=== PATIENT | male | born 1955 | race Caucasian/White ===

== ENCOUNTER → 2017-04-05 10:39 | Outpatient (CLI) | payer MEDICARE, MEDICAID, SELFPAY ==
[2017-04-05 13:21] LABS: Basophils % 0.6 % (0.1-2.0); Eosinophils # 0.3 K/mm3 (0.0-0.4); Eosinophils % 3.9 % (0.1-12.0); Hematocrit 49.8 % (42.0-52.0); Hemoglobin 15.8 g/dL (14.1-18.0); Lymphocytes % 26.6 K/mm3 (10-50); Mean Corpuscular HGB Conc 31.7 g/dL (31.8-35.4); Mean Corpuscular Hemoglobin 28.6 pg (27.0-31.2); Mean Corpuscular Volume 90.4 fl (80-94); Mean Platelet Volume 7.4 fl (7.4-10.4); Monocytes # 0.5 K/mm3 (0.1-1.0); Monocytes % 6.3 % (1.7-9.3); Neutrophils # 4.7 K/mm3 (1.8-7.8); Neutrophils % 62.7 % (37.0-80.0); Platelet Count 423 K/mm3 (142-424); Red Blood Count 5.51 M/mm3 (4.60-6.20); White Blood Count 7.5 K/mm3 (4.8-10.8)
[2017-04-05 13:25] LABS: Alanine Aminotransferase 25 U/L (12-78); Albumin Level 3.9 gm/dL (3.4-5.0); Albumin/Globulin Ratio 1.3 (1.1-1.8); Alkaline Phosphatase 101 U/L (46-116); Anion Gap 11.8 mEq/L (5-15); Bilirubin,Total 0.4 mg/dL (0.2-1.0); Blood Urea Nitrogen 17 mg/dL (7-18); Calcium 9.1 mg/dL (8.5-10.1); Carbon Dioxide 27 mmol/L (21.0-32.0); Chloride 107 mmol/L (98-107); Chol/HDL Ratio 2.8 (1-3.5); Cholesterol 110 mg/dL (140-200); Creatinine,Serum 0.71 mg/dL (0.70-1.30); Estimated Glomerular Filt Rate 112 ml/min (>60); GFR (African American) 136 ML/MIN (>60); Globulin 2.9 gm/dl (1.3-3.2); Glucose 154 mg/dL (74-106); HDL Cholesterol 39 mg/dL (27-67); LDL Cholesterol 52 mg/dL (0-130); Sodium 141 mmol/L (136-145); Thyroid Stimulating Hormone 2.56 uIU/ml (0.358-3.740); Total Protein,Serum 6.8 gm/dL (6.4-8.2); Triglycerides 94 mg/dL (30-200); VLDL Cholesterol 19 mg/dL (0-40)
[2017-04-05 13:38] LABS: Aspartate Amino Transferase 16 U/L (15-37); Potassium 4.8 mmoL/L (3.5-5.1)
[2017-04-05 13:53] LABS: Hemoglobin A1C 7.7 % (0.0-7.0)
== END ==
PROVIDERS: PCP Internal Medicine Adolescent Medicine; Visit Provider Internal Medicine Adolescent Medicine
DX: E11.69 Type 2 diabetes mellitus with other specified complication (principal); I25.10 Atherosclerotic heart disease of native coronary artery without angina pectoris; E03.9 Hypothyroidism, unspecified
CPT/HCPCS: 36415; 80053; 80061; 83036; 84443; 85025

== ENCOUNTER → 2017-07-05 10:23 | Outpatient (CLI) | payer MEDICARE, MEDICAID, SELFPAY ==
[2017-07-05 14:15] LABS: Alanine Aminotransferase 22 U/L (12-78); Albumin Level 3.8 gm/dL (3.4-5.0); Albumin/Globulin Ratio 1.2 (1.1-1.8); Alkaline Phosphatase 84 U/L (46-116); Anion Gap 14.1 mEq/L (5-15); Aspartate Amino Transferase 13 U/L (15-37); Bilirubin,Total 0.4 mg/dL (0.2-1.0); Blood Urea Nitrogen 19 mg/dL (7-18); Calcium 8.9 mg/dL (8.5-10.1); Carbon Dioxide 27 mmol/L (21.0-32.0); Chloride 106 mmol/L (98-107); Chol/HDL Ratio 2.7 (1-3.5); Cholesterol 109 mg/dL (140-200); Creatinine,Serum 0.76 mg/dL (0.70-1.30); Estimated Glomerular Filt Rate 104 ml/min (>60); GFR (African American) 125 ML/MIN (>60); Globulin 3.1 gm/dl (1.3-3.2); Glucose 108 mg/dL (74-106); HDL Cholesterol 41 mg/dL (27-67); LDL Cholesterol 54 mg/dL (0-130); Potassium 4.1 mmoL/L (3.5-5.1); Sodium 143 mmol/L (136-145); Thyroid Stimulating Hormone 2.17 uIU/ml (0.358-3.740); Total Protein,Serum 6.9 gm/dL (6.4-8.2); Triglycerides 70 mg/dL (30-200); VLDL Cholesterol 14 mg/dL (0-40)
[2017-07-05 14:38] LABS: Basophils # 0.1 K/mm3 (0-0.2); Basophils % 1.1 % (0.1-2.0); Eosinophils # 0.2 K/mm3 (0.0-0.4); Eosinophils % 3.7 % (0.1-12.0); Hematocrit 49.4 % (42.0-52.0); Hemoglobin 15.3 g/dL (14.1-18.0); Lymphocytes # 1.8 K/mm3 (0.7-4.5); Lymphocytes % 32.4 K/mm3 (10-50); Mean Corpuscular HGB Conc 30.8 g/dL (31.8-35.4); Mean Corpuscular Hemoglobin 29.3 pg (27.0-31.2); Monocytes # 0.4 K/mm3 (0.1-1.0); Monocytes % 7.9 % (1.7-9.3); Neutrophils # 3.1 K/mm3 (1.8-7.8); Neutrophils % 54.9 % (37.0-80.0); Platelet Count 436 K/mm3 (142-424); Red Cell Distribution Width 13.5 % (11.5-17.5); White Blood Count 5.6 K/mm3 (4.8-10.8)
[2017-07-05 15:47] LABS: Hemoglobin A1C 6.7 % (0.0-7.0)
[2017-07-06 12:19] LABS: Creatinine, Urine 72.9 mg/dL (Not Estab.); Microalbumin, Urine <3.0 ug/mL (Not Estab.)
== END ==
PROVIDERS: PCP Internal Medicine Adolescent Medicine; Visit Provider Internal Medicine Adolescent Medicine
DX: E11.69 Type 2 diabetes mellitus with other specified complication (principal); E03.9 Hypothyroidism, unspecified; I25.10 Atherosclerotic heart disease of native coronary artery without angina pectoris
CPT/HCPCS: 36415; 80053; 80061; 82043; 82570; 83036; 84443; 85025

== ENCOUNTER 2017-08-03 14:24 | Outpatient (RCR) | payer MEDICARE, MEDICAID, SELFPAY | END 2017-08-03 17:00 | disposition home or self-care (01) | LOC: PT 14:24 | PROVIDERS: Family Provider Family Medicine; PCP Internal Medicine Adolescent Medicine; Visit Provider Orthopaedic Surgery Adult Reconstructive Orthopaedic Surgery | DX: M62.81 Muscle weakness (generalized) (principal) | CPT/HCPCS: 97163 ==

== ENCOUNTER → 2017-08-04 09:07 | Outpatient (CLI) | payer MEDICARE, MEDICAID, SELFPAY ==
--- NOTE | 2017-08-04 09:14 | XR_ITS ---
XR hip RT 2-3V w/pelvis HISTORY: ITS.REASON: SELVIN HIP PAIN ORDERING PHYSICIAN: Ney Chacon MD PATIENT AGE: 61 years COMPARISON: 04/04/2015 FINDINGS: There are severe osteoarthritic changes of the right hip with loss of joint space, osteosclerosis, and subcortical cystic changes with osteophyte formation. There is mild deformity of the right femoral head. Osteoarthritis is worse when compared to the previous exam. No fracture or dislocation. IMPRESSION: Severe osteoarthritis of the right hip which has shown mild progression
--- NOTE | 2017-08-04 09:14 | XR_ITS ---
XR hip LT 2-3V w/pelvis HISTORY: ITS.REASON: SELVIN HIP PAIN ORDERING PHYSICIAN: Ney Chacon MD PATIENT AGE: 61 years COMPARISON: 04/04/2015 FINDINGS: There are severe osteoarthritic changes of the left hip with loss of the joint space, osteosclerosis, osteophyte formation, and subarticular cystic changes. Mild deformity of the femoral head noted. The osteoarthritis has progressed since 04/04/2015. No fracture or dislocation. IMPRESSION: Severe osteoarthritis of left hip slightly progressed
== END ==
PROVIDERS: PCP Internal Medicine Adolescent Medicine; Visit Provider Internal Medicine Adolescent Medicine
DX: M25.552 Pain in left hip (principal); M25.551 Pain in right hip
CPT/HCPCS: 73502

== ENCOUNTER → 2017-10-10 10:12 | Outpatient (CLI) | payer MEDICARE, MEDICAID, SELFPAY ==
[2017-10-10 14:26] LABS: Alanine Aminotransferase 38 U/L (12-78); Albumin/Globulin Ratio 1.3 (1.1-1.8); Alkaline Phosphatase 92 U/L (46-116); Anion Gap 15.3 mEq/L (5-15); Aspartate Amino Transferase 16 U/L (15-37); Bilirubin,Total 0.6 mg/dL (0.2-1.0); Blood Urea Nitrogen 20 mg/dL (7-18); Calcium 9.3 mg/dL (8.5-10.1); Carbon Dioxide 24 mmol/L (21.0-32.0); Chloride 106 mmol/L (98-107); Estimated Glomerular Filt Rate 97 ml/min (>60); GFR (African American) 118 ML/MIN (>60); Globulin 3.2 gm/dl (1.3-3.2); Glucose 105 mg/dL (74-106); Potassium 4.3 mmoL/L (3.5-5.1); Sodium 141 mmol/L (136-145); Thyroid Stimulating Hormone 4.23 uIU/ml (0.358-3.740); Total Protein,Serum 7.2 gm/dL (6.4-8.2)
[2017-10-10 14:36] LABS: Hemoglobin A1C 6.4 % (0.0-7.0)
== END ==
PROVIDERS: Visit Provider Internal Medicine Adolescent Medicine
DX: E11.69 Type 2 diabetes mellitus with other specified complication (principal); E03.9 Hypothyroidism, unspecified
CPT/HCPCS: 36415; 80053; 83036; 84443

== ENCOUNTER → 2018-01-30 09:45 | Outpatient (CLI) | payer MEDICARE, MEDICAID, SELFPAY ==
[2018-01-30 09:49] LABS: Microscopic, Urine URINE MICROSCOPIC (MICROSCOPIC)
[2018-01-30 13:23] LABS: Appearance,Urine CLEAR (Clear); Bilirubin,Urine Negative (Negative); Blood, Urine Negative (Negative); Color,Urine YELLOW (Yellow); Glucose,Urine (UA) 3+ (Negative); Ketones,Urine Negative (Negative); Leukocyte Esterase,Urine Negative (Negative); Nitrate,Urine Negative (Negative); Protein,Urine Negative (Negative); Specific Gravity, Urine 1.025 (1.005-1.030); Urobilinogen,Urine 0.2 EU/dl (0.2)
[2018-01-30 13:40] LABS: Hemoglobin A1C 6.5 % (0.0-7.0)
[2018-01-30 14:01] LABS: Alanine Aminotransferase 24 U/L (12-78); Albumin Level 3.7 gm/dL (3.4-5.0); Albumin/Globulin Ratio 1.2 (1.1-1.8); Alkaline Phosphatase 94 U/L (46-116); Anion Gap 13.3 mEq/L (5-15); Aspartate Amino Transferase 14 U/L (15-37); Bilirubin,Total 0.6 mg/dL (0.2-1.0); Blood Urea Nitrogen 17 mg/dL (7-18); Carbon Dioxide 31 mmol/L (21.0-32.0); Chloride 103 mmol/L (98-107); Creatinine,Serum 0.62 mg/dL (0.70-1.30); Estimated Glomerular Filt Rate 131 ml/min (>60); GFR (African American) 158 ML/MIN (>60); Globulin 3.1 gm/dl (1.3-3.2); Glucose 137 mg/dL (74-106); Potassium 4.3 mmoL/L (3.5-5.1); Sodium 143 mmol/L (136-145); Thyroid Stimulating Hormone 3.73 uIU/ml (0.358-3.740); Total Protein,Serum 6.8 gm/dL (6.4-8.2)
[2018-01-30 14:15] LABS: Mucus,Urine 1+ /lpf; Squamous Epithelial Cell,Urine Occasional #/hpf (0-5)
[2018-01-30 14:16] LABS: Bacteria,Urine Trace /lpf; WBC,Urine Occasional #/hpf (0-3)
[2018-01-31 11:47] LABS: Microalbumin, Urine <3.0 ug/mL (Not Estab.)
== END ==
PROVIDERS: PCP Internal Medicine Adolescent Medicine; Visit Provider Internal Medicine Adolescent Medicine
DX: E11.69 Type 2 diabetes mellitus with other specified complication (principal); E03.9 Hypothyroidism, unspecified; I10 Essential (primary) hypertension
CPT/HCPCS: 36415; 80053; 81001; 82043; 83036; 84443

== ENCOUNTER → 2018-03-20 13:07 | Outpatient (CLI) | payer MEDICARE, MEDICAID, SELFPAY ==
--- NOTE | 2018-03-20 13:14 | XR_ITS ---
XR knee LT 3V HISTORY: Left knee pain ITS.REASON: OA ORDERING PHYSICIAN: Reymundo Sears PATIENT AGE: 62 years COMPARISON: Left knee 04/04/2015 FINDINGS: There is minor joint space narrowing medially and minor spurring of the tibial spines. There is narrowing of the patellofemoral space with minimal spurring of the superior border of the patella. There is no fracture or loose and is no definite effusion. IMPRESSION: Mild osteoarthritic changes left knee joint slight progression from the previous study.
--- NOTE | 2018-03-20 13:14 | XR_ITS ---
XR hip LT 2-3V w/pelvis HISTORY: Bilateral hip pain ITS.REASON: OA ORDERING PHYSICIAN: Reymundo Sears PATIENT AGE: 62 years COMPARISON: Left hip 08/04/2017 and pelvis right hip 08/04/2017 FINDINGS: Severe far advanced osteoarthritic changes are seen in both hips with known on bone appearance, mild sclerosis of the acetabulum and prominent subchondral cystic change in the femoral heads bilaterally. There is osteophytic spurring of the inferior aspect of the right femoral head. There is mild osteophytic spurring of the roof of the left acetabulum. There has been no significant interval progression of the changes from previous study in July of this year. The SI joints and symphysis pubis appear normal. IMPRESSION: Far advanced severe bilateral osteoarthritic change of both hips
== END ==
PROVIDERS: PCP Internal Medicine Adolescent Medicine; Visit Provider Orthopaedic Surgery Adult Reconstructive Orthopaedic Surgery
DX: M16.12 Unilateral primary osteoarthritis, left hip (principal); M17.12 Unilateral primary osteoarthritis, left knee
CPT/HCPCS: 73502; 73562

== ENCOUNTER → 2018-10-16 09:59 | Outpatient (CLI) | payer MEDICARE, MEDICAID, SELFPAY ==
[2018-10-16 14:05] LABS: Basophils # 0.1 K/mm3 (0-0.2); Basophils % 1.2 % (0.1-2.0); Eosinophils # 0.2 K/mm3 (0.0-0.4); Eosinophils % 3.8 % (0.1-12.0); Hematocrit 44.2 % (42.0-52.0); Hemoglobin 13.3 g/dL (14.1-18.0); Lymphocytes # 1.2 K/mm3 (0.7-4.5); Lymphocytes % 23.8 % (10-50); Mean Corpuscular HGB Conc 30.1 g/dL (31.8-35.4); Mean Corpuscular Hemoglobin 28.2 pg (27.0-31.2); Mean Corpuscular Volume 93.6 fl (80-94); Mean Platelet Volume 7.4 fl (7.4-10.4); Monocytes # 0.3 K/mm3 (0.1-1.0); Monocytes % 6.5 % (1.7-9.3); Neutrophils # 3.3 K/mm3 (1.8-7.8); Neutrophils % 64.6 % (37.0-80.0); Platelet Count 421 K/mm3 (142-424); Red Blood Count 4.73 M/mm3 (4.60-6.20); Red Cell Distribution Width 14.7 % (11.5-17.5); White Blood Count 5.1 K/mm3 (4.8-10.8)
[2018-10-16 14:40] LABS: Hemoglobin A1C 6.7 % (0.0-7.0)
[2018-10-16 15:22] LABS: Alanine Aminotransferase 20 U/L (12-78); Albumin Level 3.5 gm/dL (3.4-5.0); Albumin/Globulin Ratio 1.3 (1.1-1.8); Alkaline Phosphatase 98 U/L (46-116); Anion Gap 13.4 mEq/L (5-15); Aspartate Amino Transferase 10 U/L (15-37); Bilirubin,Total 0.3 mg/dL (0.2-1.0); Blood Urea Nitrogen 13 mg/dL (7-18); Calcium 9.3 mg/dL (8.5-10.1); Carbon Dioxide 28 mmol/L (21.0-32.0); Chloride 106 mmol/L (98-107); Creatinine,Serum 0.87 mg/dL (0.70-1.30); Estimated Glomerular Filt Rate 88 ml/min (>60); GFR (African American) 107 ML/MIN (>60); Globulin 2.8 gm/dl (1.3-3.2); Glucose 231 mg/dL (74-106); Potassium 4.4 mmoL/L (3.5-5.1); Sodium 143 mmol/L (136-145); Thyroid Stimulating Hormone 2.16 uIU/ml (0.358-3.740); Total Protein,Serum 6.3 gm/dL (6.4-8.2)
== END ==
PROVIDERS: PCP Internal Medicine Adolescent Medicine; Visit Provider Internal Medicine Adolescent Medicine
DX: E03.9 Hypothyroidism, unspecified (principal); E11.69 Type 2 diabetes mellitus with other specified complication
CPT/HCPCS: 36415; 80053; 83036; 84443; 85025

== ENCOUNTER → 2019-01-16 09:46 | Outpatient (CLI) | payer MEDICARE, MEDICAID, SELFPAY ==
[2019-01-16 15:43] LABS: Anion Gap 13.5 mEq/L (5-15); Blood Urea Nitrogen 12 mg/dL (7-18); Calcium 9.2 mg/dL (8.5-10.1); Carbon Dioxide 28 mmol/L (21.0-32.0); Chloride 106 mmol/L (98-107); Creatinine,Serum 0.75 mg/dL (0.70-1.30); Estimated Glomerular Filt Rate 105 ml/min (>60); GFR (African American) 126 ML/MIN (>60); Glucose 136 mg/dL (74-106); Potassium 4.5 mmoL/L (3.5-5.1); Sodium 143 mmol/L (136-145); Thyroid Stimulating Hormone 2.83 uIU/ml (0.358-3.740)
[2019-01-16 16:50] LABS: Hemoglobin A1C 7.7 % (0.0-7.0)
== END ==
PROVIDERS: PCP Internal Medicine Adolescent Medicine; Visit Provider Internal Medicine Adolescent Medicine
DX: E11.69 Type 2 diabetes mellitus with other specified complication (principal); E03.9 Hypothyroidism, unspecified
CPT/HCPCS: 36415; 80048; 83036; 84443

== ENCOUNTER → 2019-04-10 09:10 | Outpatient (CLI) | payer MEDICARE, MEDICAID, SELFPAY ==
[2019-04-10 15:13] LABS: Alanine Aminotransferase 24 U/L (12-78); Albumin/Globulin Ratio 1.3 (1.1-1.8); Anion Gap 15.8 mEq/L (5-15); Aspartate Amino Transferase 16 U/L (15-37); Bilirubin,Total 0.6 mg/dL (0.2-1.0); Blood Urea Nitrogen 20 mg/dL (7-18); Calcium 9.2 mg/dL (8.5-10.1); Carbon Dioxide 28 mmol/L (21.0-32.0); Chloride 104 mmol/L (98-107); Creatinine,Serum 1.01 mg/dL (0.70-1.30); Estimated Glomerular Filt Rate 74 ml/min (>60); GFR (African American) 90 ML/MIN (>60); Globulin 3.1 gm/dl (1.3-3.2); Glucose 173 mg/dL (74-106); Potassium 4.8 mmoL/L (3.5-5.1); Sodium 143 mmol/L (136-145); Thyroid Stimulating Hormone 4.56 uIU/ml (0.358-3.740); Total Protein,Serum 7.1 gm/dL (6.4-8.2)
[2019-04-10 15:19] LABS: Alkaline Phosphatase < 10 U/L (46-116)
[2019-04-10 15:22] LABS: Hemoglobin A1C 7.7 % (0.0-7.0)
== END ==
PROVIDERS: Visit Provider Internal Medicine Adolescent Medicine
DX: E11.69 Type 2 diabetes mellitus with other specified complication (principal); E03.9 Hypothyroidism, unspecified
CPT/HCPCS: 36415; 80053; 83036; 84443

== ENCOUNTER → 2020-09-04 17:29 | Outpatient (CLI) | payer MEDICARE, MEDICAID, SELFPAY ==
[2020-09-04 18:12] LABS: Chloride 104 mmol/L (98-107); Sodium 142 mmol/L (136-145)
[2020-09-04 18:15] LABS: Alanine Aminotransferase 12 U/L (12-78); Albumin Level 4.2 g/dl (3.5-5.0); Albumin/Globulin Ratio 1.7 (1.1-1.8); Alkaline Phosphatase 94 U/L (38-126); Aspartate Amino Transferase 20 U/L (17-59); Bilirubin,Total 0.7 mg/dl (0.2-1.3); Blood Urea Nitrogen 15 mg/dl (9-20); Calcium 8.8 mg/dl (8.4-10.2); Carbon Dioxide 26 mmol/L (22.0-30.0); Estimated Glomerular Filt Rate 97 ml/min (>60); GFR (African American) 117 ML/MIN (>60); Globulin 2.5 g/dL (1.3-3.2); Glucose 139 mg/dl (74-100); Total Protein,Serum 6.7 g/dl (6.3-8.2)
[2020-09-04 18:32] LABS: Hemoglobin A1C 8.6 % (4.0-6.0)
[2020-09-04 18:45] LABS: Thyroid Stimulating Hormone 2.08 uIU/mL (0.465-4.68)
== END ==
PROVIDERS: Visit Provider Internal Medicine Adolescent Medicine
DX: E11.69 Type 2 diabetes mellitus with other specified complication (principal); E03.9 Hypothyroidism, unspecified
CPT/HCPCS: 80053; 83036; 84443

== ENCOUNTER → 2020-12-04 08:00 | Outpatient (CLI) | payer MEDICARE, MEDICAID, SELFPAY ==
[2020-12-05 09:22] LABS: Chloride 105 mmol/L (98-107)
[2020-12-05 09:23] LABS: Potassium 5.3 mmoL/L (3.5-5.1); Sodium 141 mmol/L (136-145)
[2020-12-05 09:25] LABS: Alanine Aminotransferase 14 U/L (12-78); Aspartate Amino Transferase 41 U/L (17-59); Bilirubin,Total 0.3 mg/dl (0.2-1.3); Blood Urea Nitrogen 27 mg/dl (9-20); Estimated Glomerular Filt Rate 75 ml/min (>60); GFR (African American) 90 ML/MIN (>60)
[2020-12-05 09:26] LABS: Albumin Level 4.2 g/dl (3.5-5.0); Albumin/Globulin Ratio 1.6 (1.1-1.8); Alkaline Phosphatase 110 U/L (38-126); Anion Gap 17.3 mEq/L (5-15); Calcium 9.8 mg/dl (8.4-10.2); Carbon Dioxide 24 mmol/L (22.0-30.0); Chol/HDL Ratio 3.4 (1-3.5); Cholesterol 139 mg/dl (140-200); Globulin 2.7 g/dL (1.3-3.2); Glucose 138 mg/dl (74-100); HDL Cholesterol 41 mg/dl (40-60); Total Protein,Serum 6.9 g/dl (6.3-8.2); Triglycerides 117 mg/dl (30-150); VLDL Cholesterol 23 mg/dL (0-40)
[2020-12-05 09:37] LABS: Direct LDL Cholesterol 80.54 mg/dL (100-129)
[2020-12-05 09:55] LABS: Thyroid Stimulating Hormone 4.22 uIU/mL (0.465-4.68)
== END ==
PROVIDERS: Visit Provider Internal Medicine Adolescent Medicine
DX: E11.69 Type 2 diabetes mellitus with other specified complication (principal); E03.9 Hypothyroidism, unspecified; E78.5 Hyperlipidemia, unspecified
CPT/HCPCS: 80053; 80061; 84443

== ENCOUNTER → 2021-03-05 18:18 | Outpatient (CLI) | payer MEDICARE, MEDICAID, SELFPAY ==
[2021-03-05 19:14] LABS: Hemoglobin A1C 7.6 % (4.0-6.0)
[2021-03-05 19:25] LABS: Alanine Aminotransferase 17 U/L (12-78); Albumin Level 4.2 g/dl (3.5-5.0); Albumin/Globulin Ratio 1.6 (1.1-1.8); Alkaline Phosphatase 79 U/L (38-126); Anion Gap 16.4 mEq/L (5-15); Aspartate Amino Transferase 22 U/L (17-59); Bilirubin,Total 0.6 mg/dl (0.2-1.3); Blood Urea Nitrogen 23 mg/dl (9-20); Calcium 9.6 mg/dl (8.4-10.2); Carbon Dioxide 23 mmol/L (22.0-30.0); Chloride 103 mmol/L (98-107); Chol/HDL Ratio 3.3 (1-3.5); Cholesterol 129 mg/dl (140-200); Estimated Glomerular Filt Rate 84 ml/min (>60); GFR (African American) 102 ML/MIN (>60); Globulin 2.6 g/dL (1.3-3.2); Glucose 155 mg/dl (74-100); HDL Cholesterol 39 mg/dl (40-60); Potassium 4.4 mmoL/L (3.5-5.1); Sodium 138 mmol/L (136-145); Total Protein,Serum 6.8 g/dl (6.3-8.2); Triglycerides 117 mg/dl (30-150); VLDL Cholesterol 23 mg/dL (0-40)
[2021-03-05 19:35] LABS: Direct LDL Cholesterol 75.15 mg/dL (100-129)
[2021-03-05 19:55] LABS: Thyroid Stimulating Hormone 2.25 uIU/mL (0.465-4.68)
== END ==
PROVIDERS: Visit Provider Nurse Practitioner Family
DX: Z00.00 Encounter for general adult medical examination without abnormal findings (principal); E11.69 Type 2 diabetes mellitus with other specified complication; E78.5 Hyperlipidemia, unspecified; E03.9 Hypothyroidism, unspecified
CPT/HCPCS: 80053; 80061; 83036; 84443

== ENCOUNTER → 2021-08-06 09:49 | Outpatient (CLI) | payer MEDICARE, MEDICAID, SELFPAY ==
[2021-08-06 14:46] LABS: Chloride 106 mmol/L (98-107); Potassium 4.7 mmoL/L (3.5-5.1); Sodium 140 mmol/L (136-145)
[2021-08-06 14:48] LABS: Blood Urea Nitrogen 20 mg/dl (9-20); Estimated Glomerular Filt Rate 75 ml/min (>60); GFR (African American) 90 ML/MIN (>60)
[2021-08-06 14:49] LABS: Alanine Aminotransferase 14 U/L (12-78); Albumin Level 4.1 g/dl (3.5-5.0); Albumin/Globulin Ratio 1.6 (1.1-1.8); Alkaline Phosphatase 83 U/L (38-126); Anion Gap 13.7 mEq/L (5-15); Aspartate Amino Transferase 18 U/L (17-59); Bilirubin,Total 0.9 mg/dl (0.2-1.3); Calcium 9.8 mg/dl (8.4-10.2); Carbon Dioxide 25 mmol/L (22.0-30.0); Cholesterol 143 mg/dl (140-200); Globulin 2.6 g/dL (1.3-3.2); Glucose 154 mg/dl (74-100); HDL Cholesterol 36 mg/dl (40-60); Total Protein,Serum 6.7 g/dl (6.3-8.2); Triglycerides 108 mg/dl (30-150); VLDL Cholesterol 22 mg/dL (0-40)
[2021-08-06 15:00] LABS: Direct LDL Cholesterol 87.87 mg/dL (100-129)
[2021-08-06 15:18] LABS: Thyroid Stimulating Hormone 1.46 uIU/mL (0.465-4.68)
[2021-08-06 15:34] LABS: Hemoglobin A1C 7.4 % (4.0-6.0)
== END ==
PROVIDERS: Visit Provider Internal Medicine Adolescent Medicine
DX: E11.69 Type 2 diabetes mellitus with other specified complication (principal); E78.5 Hyperlipidemia, unspecified; I10 Essential (primary) hypertension; E03.9 Hypothyroidism, unspecified
CPT/HCPCS: 36415; 80053; 80061; 83036; 84443

== ENCOUNTER → 2021-12-01 06:01 | Outpatient (CLI) | payer MEDICARE, MEDICAID, SELFPAY ==
[2021-12-01 18:09] LABS: Hemoglobin A1C 7.2 % (4.0-6.0)
[2021-12-01 18:33] LABS: Prostate Specific Ag Screen 2.3 ng/ml (0.0-4.0)
== END ==
PROVIDERS: PCP Family Medicine; Visit Provider Family Medicine
DX: E11.9 Type 2 diabetes mellitus without complications (principal); Z00.00 Encounter for general adult medical examination without abnormal findings; Z79.84 Long term (current) use of oral hypoglycemic drugs; Z12.5 Encounter for screening for malignant neoplasm of prostate
CPT/HCPCS: 83036; G0103

== ENCOUNTER → 2022-03-30 05:59 | Outpatient (CLI) | payer MEDICARE, MEDICAID, SELFPAY ==
[2022-03-30 19:25] LABS: Microalbumin < 6.000 mg/L (0-16.7)
[2022-03-30 19:42] LABS: Creatinine,Urine Random 61 mg/dL (Not Estab.)
== END ==
PROVIDERS: PCP Family Medicine; Visit Provider Family Medicine
DX: E11.9 Type 2 diabetes mellitus without complications (principal); Z79.84 Long term (current) use of oral hypoglycemic drugs
CPT/HCPCS: 82043; 82570; 83036

== ENCOUNTER → 2022-07-27 23:34 | Outpatient (CLI) | payer MEDICARE, MEDICAID, SELFPAY ==
[2022-07-27 17:11] LABS: Basophils # 0.1 K/mm3 (0-0.2); Basophils % 0.8 % (0.1-2.0); Eosinophils # 0.2 K/mm3 (0.0-0.4); Eosinophils % 3.1 % (0.1-12.0); Hematocrit 50.3 % (42.0-52.0); Hemoglobin 15.8 g/dL (14.1-18.0); Lymphocytes # 1.6 K/mm3 (0.7-4.5); Lymphocytes % 25.2 % (10-50); Mean Corpuscular HGB Conc 31.3 g/dL (31.8-35.4); Mean Corpuscular Hemoglobin 29.3 pg (27.0-31.2); Mean Corpuscular Volume 93.6 fl (80-94); Mean Platelet Volume 9.2 fl (7.4-10.4); Monocytes # 0.5 K/mm3 (0.1-1.0); Monocytes % 7.5 % (1.7-9.3); Neutrophils % 63.4 % (37.0-80.0); Platelet Count 350 K/mm3 (142-424); Red Blood Count 5.38 M/mm3 (4.60-6.20); Red Cell Distribution Width 13.9 % (11.5-17.5); White Blood Count 6.3 K/mm3 (4.8-10.8)
[2022-07-27 17:12] LABS: Creatinine,Urine Random 36 mg/dL (Not Estab.)
[2022-07-27 17:17] LABS: Microalbumin < 6.000 mg/L (0-16.7)
[2022-07-27 17:21] LABS: Alanine Aminotransferase 20 U/L (12-78); Albumin Level 3.9 g/dl (3.5-5.0); Albumin/Globulin Ratio 1.6 (1.1-1.8); Alkaline Phosphatase 97 U/L (38-126); Anion Gap 17.4 mEq/L (5-15); Aspartate Amino Transferase 26 U/L (17-59); Bilirubin,Total 0.6 mg/dl (0.2-1.3); Blood Urea Nitrogen 17 mg/dl (9-20); Calcium 8.5 mg/dl (8.4-10.2); Carbon Dioxide 25 mmol/L (22.0-30.0); Chloride 101 mmol/L (98-107); Chol/HDL Ratio 2.8 (1-3.5); Cholesterol 116 mg/dl (140-200); Estimated Glomerular Filt Rate 96 ml/min (>60); GFR (African American) 116 ML/MIN (>60); Globulin 2.4 g/dL (1.3-3.2); Glucose 331 mg/dl (74-100); HDL Cholesterol 42 mg/dl (40-60); Potassium 4.4 mmoL/L (3.5-5.1); Sodium 139 mmol/L (136-145); Total Protein,Serum 6.3 g/dl (6.3-8.2); Triglycerides 148 mg/dl (30-150); VLDL Cholesterol 30 mg/dL (0-40)
[2022-07-27 17:32] LABS: Direct LDL Cholesterol 60.05 mg/dL (100-129)
[2022-07-27 17:52] LABS: Thyroid Stimulating Hormone 1.15 uIU/mL (0.465-4.68)
[2022-07-27 18:03] LABS: Hemoglobin A1C 6.7 % (4.0-6.0)
== END ==
PROVIDERS: PCP Family Medicine; Visit Provider Family Medicine
DX: E03.9 Hypothyroidism, unspecified (principal); E11.9 Type 2 diabetes mellitus without complications; I10 Essential (primary) hypertension; R35.1 Nocturia; Z79.84 Long term (current) use of oral hypoglycemic drugs
CPT/HCPCS: 80053; 80061; 82043; 82570; 83036; 84443; 85025

== ENCOUNTER → 2022-11-24 23:28 | Outpatient (CLI) | payer MEDICARE, MEDICAID, SELFPAY ==
[2022-11-24 16:37] LABS: Alanine Aminotransferase 21 U/L (12-78); Albumin Level 3.8 g/dl (3.5-5.0); Albumin/Globulin Ratio 1.5 (1.1-1.8); Alkaline Phosphatase 105 U/L (38-126); Anion Gap 13.2 mEq/L (5-15); Aspartate Amino Transferase 23 U/L (17-59); Bilirubin,Total 0.4 mg/dl (0.2-1.3); Blood Urea Nitrogen 16 mg/dl (9-20); Calcium 9.1 mg/dl (8.4-10.2); Carbon Dioxide 27 mmol/L (22.0-30.0); Chloride 108 mmol/L (98-107); Estimated Glomerular Filt Rate 84 ml/min (>60); GFR (African American) 101 ML/MIN (>60); Globulin 2.5 g/dL (1.3-3.2); Glucose 199 mg/dl (74-100); Potassium 5.2 mmoL/L (3.5-5.1); Sodium 143 mmol/L (136-145); Total Protein,Serum 6.3 g/dl (6.3-8.2)
[2022-11-24 16:38] LABS: Hemoglobin A1C 6.6 % (4.0-6.0)
== END ==
PROVIDERS: PCP Family Medicine; Visit Provider Family Medicine
DX: I10 Essential (primary) hypertension (principal); E11.9 Type 2 diabetes mellitus without complications; Z79.84 Long term (current) use of oral hypoglycemic drugs
CPT/HCPCS: 80053; 83036

== ENCOUNTER 2023-03-24 10:00 | Outpatient (CLI) | payer MEDICARE, MEDICAID, SELFPAY ==
[2023-03-24 16:45] LABS: Hemoglobin A1C 6.3 % (4.0-6.0)
== END 2023-03-24 23:59 ==
LOC: LAB.DROPOF 03-25 11:13
PROVIDERS: PCP Family Medicine; Visit Provider Family Medicine
DX: E11.9 Type 2 diabetes mellitus without complications (principal); Z79.84 Long term (current) use of oral hypoglycemic drugs
CPT/HCPCS: 83036

== ENCOUNTER 2023-06-21 15:38 | Outpatient (CLI) | payer MEDICARE, MEDICAID, SELFPAY ==
[2023-06-21 16:58] LABS: Hemoglobin A1C 7.5 % (4.0-6.0)
== END 2023-06-21 23:59 ==
LOC: LAB.DROPOF 06-27 15:38
PROVIDERS: PCP Family Medicine; Visit Provider Family Medicine
DX: E11.9 Type 2 diabetes mellitus without complications (principal); Z79.84 Long term (current) use of oral hypoglycemic drugs
CPT/HCPCS: 83036

== ENCOUNTER 2023-09-20 16:44 | Outpatient (CLI) | payer MEDICARE, MEDICAID, SELFPAY ==
[2023-09-20 19:55] LABS: Creatinine,Urine Random 56 mg/dL (Not Estab.)
[2023-09-20 20:01] LABS: Microalbumin < 6.000 mg/L (0-16.7)
== END 2023-09-20 23:59 | disposition home or self-care (01) ==
LOC: LAB.DROPOF 16:45
PROVIDERS: PCP Family Medicine; Visit Provider Family Medicine
DX: E11.9 Type 2 diabetes mellitus without complications (principal); Z79.4 Long term (current) use of insulin
CPT/HCPCS: 82043; 82570

== ENCOUNTER 2024-04-03 09:47 | Outpatient (CLI) | payer MEDICARE, MEDICAID, SELFPAY ==
--- NOTE | 2024-04-03 10:10 | XR_ITS ---
FINAL REPORT CLINICAL HISTORY: dyspnea COMPARISON: None FINDINGS: Mild scarring is present in the left lung base. There is no evidence of effusion or other pleural disease. The mediastinum has a normal appearance. The cardiac silhouette is unremarkable. IMPRESSION: Mild scarring left base, otherwise unremarkable two-view chest. Reviewed, Interpreted and Dictated by Sheree Macdonald MD Transcribed by Ana Garcia Authenticated and [facility]
[2024-04-03 10:19] LABS: Basophils # 0.1 K/mm3 (0-0.2); Basophils % 0.9 % (0.1-2.0); Eosinophils # 0.2 K/mm3 (0.0-0.4); Eosinophils % 3.2 % (0.1-12.0); Hematocrit 50.2 % (42.0-52.0); Hemoglobin 16.2 g/dL (14.1-18.0); Lymphocytes # 1.9 K/mm3 (0.7-4.5); Lymphocytes % 28.7 % (10-50); Mean Corpuscular HGB Conc 32.3 g/dL (31.8-35.4); Mean Corpuscular Hemoglobin 29.6 pg (27.0-31.2); Mean Corpuscular Volume 91.6 fl (80-94); Mean Platelet Volume 9.7 fl (7.4-10.4); Monocytes # 0.7 K/mm3 (0.1-1.0); Monocytes % 10.2 % (1.7-9.3); Neutrophils # 3.7 K/mm3 (1.8-7.8); Neutrophils % 56.8 % (37.0-80.0); Platelet Count 321 K/mm3 (142-424); Red Blood Count 5.48 M/mm3 (4.60-6.20); Red Cell Distribution Width 13.5 % (11.5-17.5); White Blood Count 6.6 K/mm3 (4.8-10.8)
[2024-04-03 11:34] LABS: Albumin Level 4.3 g/dl (3.5-5.0); Chloride 104 mmol/L (98-107); Sodium 139 mmol/L (136-145)
[2024-04-03 11:35] LABS: Potassium 4.4 mmoL/L (3.5-5.1)
[2024-04-03 11:37] LABS: Alanine Aminotransferase 24 U/L (12-78); Albumin/Globulin Ratio 1.7 (1.1-1.8); Anion Gap 10.4 mEq/L (5-15); Aspartate Amino Transferase 24 U/L (17-59); Blood Urea Nitrogen 15 mg/dl (9-20); Carbon Dioxide 29 mmol/L (22.0-30.0); Estimated Glomerular Filt Rate 96 ml/min (>60); GFR (African American) 116 ML/MIN (>60); Globulin 2.6 g/dL (1.3-3.2); Total Protein,Serum 6.9 g/dl (6.3-8.2)
[2024-04-03 11:38] LABS: Alkaline Phosphatase 107 U/L (38-126); Calcium 9.5 mg/dl (8.4-10.2); Chol/HDL Ratio 3.6 (1-3.5); Cholesterol 126 mg/dl (140-200); Glucose 130 mg/dl (74-100); HDL Cholesterol 35 mg/dl (40-60); Triglycerides 106 mg/dl (30-150); VLDL Cholesterol 21 mg/dL (0-40)
[2024-04-03 12:06] LABS: Thyroid Stimulating Hormone 1.69 uIU/mL (0.465-4.68)
[2024-04-03 12:21] LABS: Hepatitis C Ab Qual. W/ RFX NEGATIVE (Negative)
[2024-04-03 12:26] LABS: HIV Combo NEGATIVE (Negative)
[2024-04-03 13:09] LABS: Hemoglobin A1C 7.4 % (4.0-6.0)
[2024-04-03 17:09] LABS: Prostate Specific Ag Screen 2.4 ng/ml (0.0-4.0)
[2024-04-03 18:06] LABS: Creatinine,Urine Random 101 mg/dL (Not Estab.); Microalbumin < 6.000 mg/L (0-16.7)
== END 2024-04-03 23:59 | disposition home or self-care (01) ==
LOC: LAB 09:49
PROVIDERS: PCP Family Medicine; Visit Provider Family Medicine
DX: E11.9 Type 2 diabetes mellitus without complications (principal); E03.9 Hypothyroidism, unspecified; I10 Essential (primary) hypertension; Z11.59 Encounter for screening for other viral diseases; Z12.5 Encounter for screening for malignant neoplasm of prostate; R06.00 Dyspnea, unspecified
CPT/HCPCS: 36415; 71046; 80053; 80061; 82043; 82570; 83036; 83880; 84443; 85025; 86803; 87389; G0103